=== PATIENT | female | born 1965 | race Caucasian/White ===

== ENCOUNTER → 2017-04-11 | Outpatient (CLI) | payer BC | END | disposition home or self-care (01) | LOC: CDC 15:43 | DX: R00.1 Bradycardia, unspecified (principal); I25.9 Chronic ischemic heart disease, unspecified; R94.31 Abnormal electrocardiogram [ECG] [EKG]; G35 Multiple sclerosis | CPT/HCPCS: 93000 ==

== ENCOUNTER → 2017-04-11 | Outpatient (CLI) | payer BC | END | disposition home or self-care (01) | LOC: CDC 08:21 | DX: R94.31 Abnormal electrocardiogram [ECG] [EKG] (principal); G35 Multiple sclerosis | CPT/HCPCS: 93000 ==